=== PATIENT | male | born 1950 | race Caucasian/White ===

== ENCOUNTER 2023-04-25 18:07 | Inpatient (IN) | payer MEDICARE, OTHER ==
[~2023-04-25] VITALS: Ht 172.7 cm; Wt 92.5 kg
[2023-04-25] MEDS ORDERED: MAGN400O6 PO (18:55)
[2023-04-25] MEDS ORDERED: TRAM100T23 PO (18:55)
[2023-04-25] MEDS ORDERED: VITAMIN D2 PO (18:55)
[2023-04-25] MEDS ORDERED: ACET-2605 PO (18:55)
[2023-04-25] MEDS ORDERED: DOCU-286 PO (18:55)
[2023-04-25] MEDS ORDERED: LOPE2CAP40 PO (18:55)
[2023-04-25] MEDS ORDERED: LISI1TAB29 PO (18:55)
[2023-04-25] MEDS ORDERED: NYST15PO4 TP (18:55)
[2023-04-25] MEDS ORDERED: METO-356 PO (18:55)
[2023-04-25] MEDS ORDERED: FURO20TA4 PO (18:55)
[2023-04-25] MEDS ORDERED: MAG355OR32 PO (18:55)
[2023-04-25] MEDS ORDERED: ATOR10TA PO (18:55)
[2023-04-25 19:06] LABS: CALCIUM 8.6 mg/dL (8.5-10.1); CARBON DIOXIDE 28 mmol/L (21-32); CHLORIDE 97 mmol/L (98-107); CREATININE 1.9 mg/dL (0.6-1.3); GLUCOSE 115 mg/dL (74-106); POTASSIUM 4.6 mmol/L (3.5-5.1); SODIUM SERUM 131 mmol/L (136-145); UREA NITROGEN, BLOOD 21 mg/dL (7-18)
[2023-04-25 19:11] LABS: ETHANOL < 3 MG/DL (0-10)
[2023-04-25 19:14] LABS: ALANINE AMINOTRANSFERASE 22 U/L (16-63); ALBUMIN 3.7 g/dL (3.4-5.0); ALKALINE PHOSPHATASE 94 U/L (50-136); ASPARTATE AMINOTRANSFERASE 13 U/L (15-37); BILIRUBIN,DIRECT 0.1 mg/dL (0.0-0.2); BILIRUBIN,TOTAL 0.3 mg/dL (0.2-1.0); TOTAL PROTEIN, SERUM 6.6 g/dL (6.4-8.2)
[2023-04-25 19:15] LABS: ACETAMINOPHEN < 10.0 ug/mL (10-30); AMMONIA < 10 umol/L (11-32)
[2023-04-25 19:16] LABS: BASOPHILS % (AUTO) 0.5 % (0.0-2.0); EOSINOPHILS # (AUTO) 0.1 K/uL (0.0-0.7); EOSINOPHILS % (AUTO) 1.3 % (0.0-7.0); HEMATOCRIT 30.4 % (36.7-47.1); HEMOGLOBIN 10.3 g/dL (12.5-16.3); LYMPHOCYTES # (AUTO) 1.8 K/uL (0.8-4.8); LYMPHOCYTES % (AUTO) 21.5 % (20.5-51.5); MEAN CORPUSCULAR HGB CONC 34 g/dL (32.5-36.3); MEAN CORPUSCULAR VOLUME 85.9 fL (73.0-96.2); MONOCYTES # (AUTO) 0.7 K/uL (0.1-1.30); NEUTROPHILS # (AUTO) 5.6 K/uL (1.8-8.9); NEUTROPHILS % (AUTO) 67.7 % (38.5-71.5); PLATELET COUNT (AUTO) 205 K/uL (152-348); RED BLOOD CELL COUNT(AUTO) 3.54 MIL/uL (4.06-5.63); RED CELL DISTRIBUTION WIDTH 13.4 % (12.1-16.2); WHITE BLOOD COUNT (AUTO) 8.2 K/uL (3.6-10.2)
[2023-04-25 19:18] LABS: THYROID STIMULATING HORMONE 2.539 mIU/mL (0.358-3.740)
[2023-04-25 19:20] LABS: DIFFERENTIAL COMMENT 1
[2023-04-25 20:03] LABS: *BILIRUBIN,URIN NEGATIVE (NEGATIVE); *BLOOD, URINE NEGATIVE (NEGATIVE); *CLARITY,URINE CLEAR (CLEAR); *COLOR,URINE YELLOW (YELLOW); *KETONES,URINE NEGATIVE (NEGATIVE); *PROTEIN,URINE TRACE (NEGATIVE); *UROBILINOGEN,URINE 0.2 E.U./dl (NORMAL); LEUKOCYTE ESTERASE ,URINE NEGATIVE (NEGATIVE); NITRITE, URINE NEGATIVE (NEGATIVE); UGLUCOSE NEGATIVE (NEGATIVE)
[2023-04-25 20:14] LABS: *AMPHETAMINE, URINE NEGATIVE (NEGATIVE); *BARBITURATE, URINE NEGATIVE (NEGATIVE); *BENZODIAZEPINE, URINE NEGATIVE (NEGATIVE); *CANNABINOID, URINE NEGATIVE (NEGATIVE); *COCCAINE, URINE NEGATIVE (NEGATIVE); *OPIATE, URINE NEGATIVE (NEGATIVE); *PHENCYCLIDINE SCREEN,URINE NEGATIVE (NEGATIVE); FENTANYL, URINE NEGATIVE (NEGATIVE)
[2023-04-25 20:29] LABS: BACTERIA,URINE FEW /HPF (NONE SEEN); RBC,URINE 0-3 /HPF (0-3); SQUAMOUS EPITHELIAL CELL,UR FEW /HPF (NONE SEEN); WBC,URINE NONE SEEN /HPF (0-3)
[2023-04-26] MEDS ORDERED: MAGNESIUM HYDROXIDE 30 ML LIQUID UDC PO PRN (03:00)
[2023-04-26] MEDS ORDERED: MAG HYDROX/AL HYDROX/SIMETH 30 ML LIQUID UDC PO PRN (03:00)
[2023-04-26] MEDS: LORAZEPAM 0.5 MG TABLET PO PRN ×2 (04:00→20:40)
[2023-04-26] MEDS: ACETAMINOPHEN 325 MG TABLET PO PRN (04:00)
[2023-04-26 04:22] VITALS: BP 151/72; TEMP 98; O2SAT 99
[2023-04-26 07:47] VITALS: BP 156/62; TEMP 98; O2SAT 100
[2023-04-26] MEDS: DIVALPROEX SPRINKLE 125 MG CAP.SPRINK PO SCH ×3 (11:22→17:25)
[2023-04-26 15:04] LABS: *BILIRUBIN,URIN NEGATIVE (NEGATIVE); *BLOOD, URINE NEGATIVE (NEGATIVE); *CLARITY,URINE CLEAR (CLEAR); *COLOR,URINE YELLOW (YELLOW); *KETONES,URINE NEGATIVE (NEGATIVE); *PROTEIN,URINE NEGATIVE (NEGATIVE); *UROBILINOGEN,URINE 0.2 E.U./dl (NORMAL); LEUKOCYTE ESTERASE ,URINE NEGATIVE (NEGATIVE); NITRITE, URINE NEGATIVE (NEGATIVE); PH,URINE 7.5 (5.0-8.0); UGLUCOSE NEGATIVE (NEGATIVE)
[2023-04-26 15:20] VITALS: BP 138/60; TEMP 98.2; O2SAT 100
[2023-04-26 15:29] LABS: *CREATININE,URINE 34.4 mg/dL (30-125); *URINE TOTAL PROTEIN RANDOM 8.2 mg/dL (<150/24HR)
[2023-04-26] MEDS ORDERED: LOPERAMIDE HCL 2 MG CAPSULE PO PRN (18:30)
[2023-04-26] MEDS ORDERED: MAG HYDROX/AL HYDROX/SIMETH 30 ML LIQUID UDC PO SCH (18:30)
[2023-04-26] MEDS ORDERED: VITAMIN D2 1.25 MG PO SCH (18:30)
[2023-04-26] MEDS ORDERED: TRAMADOL HCL 50 MG TABLET PO PRN (19:15)
[2023-04-26 20:00] VITALS: BP 137/66; TEMP 98.2; O2SAT 96
[2023-04-26] MEDS: OLANZAPINE ZYDIS 5 MG TAB.RAPDIS PO SCH (20:40)
[2023-04-26] MEDS: TEMAZEPAM 7.5 MG CAPSULE PO PRN (23:09)
[2023-04-27 06:57] LABS: BASOPHILS % (AUTO) 0.6 % (0.0-2.0); DIFFERENTIAL COMMENT 1; EOSINOPHILS # (AUTO) 0.3 K/uL (0.0-0.7); EOSINOPHILS % (AUTO) 6.2 % (0.0-7.0); HEMATOCRIT 32.6 % (36.7-47.1); HEMOGLOBIN 11.1 g/dL (12.5-16.3); LYMPHOCYTES # (AUTO) 1.5 K/uL (0.8-4.8); MEAN CORPUSCULAR HEMOGLOBIN 29.6 uug (23.8-33.4); MEAN CORPUSCULAR HGB CONC 34 g/dL (32.5-36.3); MEAN CORPUSCULAR VOLUME 86.5 fL (73.0-96.2); MONOCYTES # (AUTO) 0.6 K/uL (0.1-1.30); MONOCYTES % (AUTO) 10.1 % (0.0-11.0); NEUTROPHILS # (AUTO) 3.1 K/uL (1.8-8.9); NEUTROPHILS % (AUTO) 56.1 % (38.5-71.5); PLATELET COUNT (AUTO) 201 K/uL (152-348); RED BLOOD CELL COUNT(AUTO) 3.77 MIL/uL (4.06-5.63); RED CELL DISTRIBUTION WIDTH 13.6 % (12.1-16.2); WHITE BLOOD COUNT (AUTO) 5.6 K/uL (3.6-10.2)
[2023-04-27 07:18] LABS: CREATINE KINASE, TOTAL 342 U/L (39-308)
[2023-04-27 07:26] LABS: THYROID STIMULATING HORMONE 2.845 mIU/mL (0.358-3.740)
[2023-04-27 07:48] LABS: ALANINE AMINOTRANSFERASE 33 U/L (16-63); ALBUMIN 3.5 g/dL (3.4-5.0); ALKALINE PHOSPHATASE 88 U/L (50-136); ASPARTATE AMINOTRANSFERASE 25 U/L (15-37); BILIRUBIN,TOTAL 0.4 mg/dL (0.2-1.0); CALCIUM 8.4 mg/dL (8.5-10.1); CARBON DIOXIDE 27 mmol/L (21-32); CHLORIDE 101 mmol/L (98-107); CREATININE 1.5 mg/dL (0.6-1.3); FERRITIN 143 ng/mL (26-388); GLUCOSE 112 mg/dL (74-106); PHOSPHOROUS 3.7 mg/dL (2.5-4.9); POTASSIUM 4.4 mmol/L (3.5-5.1); SODIUM SERUM 134 mmol/L (136-145); TOTAL PROTEIN, SERUM 6.5 g/dL (6.4-8.2); UREA NITROGEN, BLOOD 20 mg/dL (7-18); URIC ACID 5.5 mg/dL (3.5-7.2)
[2023-04-27 08:01] LABS: IRON, SERUM 71 ug/dL (50-175)
[2023-04-27 08:42] VITALS: BP 131/63; TEMP 97.8; O2SAT 100
[2023-04-27] MEDS: DIVALPROEX SPRINKLE 125 MG CAP.SPRINK PO SCH ×3 (08:54→17:25)
[2023-04-27] MEDS ORDERED: NYSTATIN POWDER 15 GM BOTTLE TP SCH (09:00)
[2023-04-27] MEDS ORDERED: MAGNESIUM HYDROXIDE 30 ML LIQUID UDC PO SCH (09:00)
[2023-04-27] MEDS ORDERED: METOPROLOL SUCCINATE XL 25 MG TAB.SR.24H PO SCH (09:00)
[2023-04-27] MEDS ORDERED: ARIP15TA43 PO (13:20)
[2023-04-27] MEDS ORDERED: LISI2.5T14 PO (13:32)
[2023-04-27] MEDS ORDERED: FURO20TA4 PO (13:32)
[2023-04-27] MEDS ORDERED: GABA300C PO (13:32)
[2023-04-27] MEDS ORDERED: POTA10CA43 PO (13:32)
[2023-04-27] MEDS ORDERED: ATOR20TA PO (13:32)
[2023-04-27] MEDS ORDERED: ICOS1CAP PO (13:32)
[2023-04-27] MEDS ORDERED: METF-495 PO (13:32)
[2023-04-27] MEDS ORDERED: ASPI81TA31 PO (13:32)
[2023-04-27] MEDS ORDERED: BENZ1TAB7 PO (13:32)
[2023-04-27] MEDS ORDERED: CYAN-51 PO (13:32)
[2023-04-27] MEDS ORDERED: ESCI5TAB PO (13:32)
[2023-04-27] MEDS ORDERED: MELA3TAB41 PO (13:32)
[2023-04-27] MEDS ORDERED: LORA0.5T48 PO (13:34)
[2023-04-27] MEDS ORDERED: CLOT15CR5 TP (13:34)
[2023-04-27 16:20] VITALS: BP 94/49; TEMP 98; O2SAT 100
[2023-04-27] MEDS ORDERED: DOCUSATE SODIUM 100 MG CAPSULE PO SCH (18:00)
[2023-04-27] MEDS ORDERED: ATORVASTATIN 10 MG TABLET PO SCH (18:00)
[2023-04-27 19:52] VITALS: BP 134/69; TEMP 98.3; O2SAT 96
[2023-04-27] MEDS: OLANZAPINE ZYDIS 5 MG TAB.RAPDIS PO SCH (20:57)
[2023-04-27] MEDS: TEMAZEPAM 7.5 MG CAPSULE PO PRN (22:34)
[2023-04-28 07:50] VITALS: BP 151/77; TEMP 98.4; O2SAT 99
[2023-04-28] MEDS: DIVALPROEX SPRINKLE 125 MG CAP.SPRINK PO SCH ×3 (08:55→16:00)
[2023-04-28 16:17] VITALS: BP 128/74; TEMP 98.1; O2SAT 100
[2023-04-28 19:43] VITALS: BP 140/62; TEMP 98.2; O2SAT 97
[2023-04-28] MEDS: OLANZAPINE ZYDIS 5 MG TAB.RAPDIS PO SCH (20:34)
[2023-04-28] MEDS: ACETAMINOPHEN 325 MG TABLET PO PRN (20:34)
[2023-04-28] MEDS: TEMAZEPAM 7.5 MG CAPSULE PO PRN (22:38)
[2023-04-29 07:06] LABS: PTH, INTACT 38 pg/mL (15-65)
[2023-04-29 07:52] VITALS: BP 137/51; TEMP 98.2; O2SAT 100
[2023-04-29 08:16] LABS: BASOPHILS % (AUTO) 0.4 % (0.0-2.0); EOSINOPHILS # (AUTO) 0.3 K/uL (0.0-0.7); EOSINOPHILS % (AUTO) 5.6 % (0.0-7.0); HEMATOCRIT 34.8 % (36.7-47.1); HEMOGLOBIN 11.8 g/dL (12.5-16.3); LYMPHOCYTES # (AUTO) 1.5 K/uL (0.8-4.8); LYMPHOCYTES % (AUTO) 30.3 % (20.5-51.5); MEAN CORPUSCULAR HEMOGLOBIN 29.2 uug (23.8-33.4); MEAN CORPUSCULAR HGB CONC 34 g/dL (32.5-36.3); MEAN CORPUSCULAR VOLUME 86.3 fL (73.0-96.2); MONOCYTES # (AUTO) 0.6 K/uL (0.1-1.30); MONOCYTES % (AUTO) 11.3 % (0.0-11.0); NEUTROPHILS # (AUTO) 2.6 K/uL (1.8-8.9); NEUTROPHILS % (AUTO) 52.4 % (38.5-71.5); PLATELET COUNT (AUTO) 213 K/uL (152-348); RED BLOOD CELL COUNT(AUTO) 4.03 MIL/uL (4.06-5.63); RED CELL DISTRIBUTION WIDTH 13.5 % (12.1-16.2); WHITE BLOOD COUNT (AUTO) 4.9 K/uL (3.6-10.2)
[2023-04-29 08:20] LABS: DIFFERENTIAL COMMENT 1
[2023-04-29] MEDS: DIVALPROEX SPRINKLE 125 MG CAP.SPRINK PO SCH ×3 (08:25→16:40)
[2023-04-29 08:31] LABS: ALANINE AMINOTRANSFERASE 33 U/L (16-63); ALBUMIN 3.6 g/dL (3.4-5.0); ALKALINE PHOSPHATASE 86 U/L (50-136); ASPARTATE AMINOTRANSFERASE 18 U/L (15-37); BILIRUBIN,TOTAL 0.4 mg/dL (0.2-1.0); CALCIUM 8.6 mg/dL (8.5-10.1); CARBON DIOXIDE 27 mmol/L (21-32); CHLORIDE 103 mmol/L (98-107); CREATININE 1.5 mg/dL (0.6-1.3); GLUCOSE 108 mg/dL (74-106); MAGNESIUM 2.3 mg/dL (1.8-2.4); PHOSPHOROUS 3.5 mg/dL (2.5-4.9); POTASSIUM 5.1 mmol/L (3.5-5.1); SODIUM SERUM 137 mmol/L (136-145); UREA NITROGEN, BLOOD 26 mg/dL (7-18)
[2023-04-29 09:06] LABS: A/G RATIO 1.3 (0.7-1.7); ALBUMIN 3.3 g/dL (2.9-4.4); ALPHA-1-GLOBULIN 0.2 g/dL (0.0-0.4); ALPHA-2-GLOBULIN 0.8 g/dL (0.4-1.0); BETA GLOBULIN 0.8 g/dL (0.7-1.3); GAMMA GLOBULIN 0.7 g/dL (0.4-1.8); GLOBULIN, TOTAL 2.6 g/dL (2.2-3.9); M-SPIKE Not Observed g/dL (Not Observed)
[2023-04-29 15:48] VITALS: BP 148/82; TEMP 98; O2SAT 99
[2023-04-29 20:01] VITALS: BP 140/73; TEMP 98; O2SAT 99
[2023-04-29] MEDS: OLANZAPINE ZYDIS 5 MG TAB.RAPDIS PO SCH (21:11)
[2023-04-29] MEDS: TEMAZEPAM 7.5 MG CAPSULE PO PRN (22:47)
[2023-04-30] MEDS: LORAZEPAM 0.5 MG TABLET PO PRN (04:04)
[2023-04-30 07:45] VITALS: BP 154/85; TEMP 98.2; O2SAT 100
[2023-04-30] MEDS: DIVALPROEX SPRINKLE 125 MG CAP.SPRINK PO SCH ×3 (08:53→17:15)
[2023-04-30 15:18] VITALS: BP 141/72; TEMP 98.2; O2SAT 98
[2023-04-30 20:00] VITALS: BP 155/73; TEMP 97.8; O2SAT 98
[2023-04-30] MEDS: OLANZAPINE ZYDIS 5 MG TAB.RAPDIS PO SCH (20:01)
[2023-04-30] MEDS: TEMAZEPAM 7.5 MG CAPSULE PO PRN (22:47)
[2023-05-01 08:00] VITALS: BP 142/64; TEMP 98.6; O2SAT 100
[2023-05-01] MEDS: DIVALPROEX SPRINKLE 125 MG CAP.SPRINK PO SCH ×3 (09:03→16:56)
[2023-05-01 16:13] VITALS: BP 128/64; TEMP 98.8; O2SAT 100
[2023-05-01 20:11] VITALS: BP 139/41; TEMP 98; O2SAT 99
[2023-05-01] MEDS ORDERED: OLANZAPINE 5 MG TABLET PO SCH (21:00)
[2023-05-02 08:04] VITALS: BP 119/48; TEMP 97.7; O2SAT 100
[2023-05-02] MEDS: DIVALPROEX SPRINKLE 125 MG CAP.SPRINK PO SCH ×3 (08:36→16:32)
[2023-05-02 15:34] VITALS: BP 111/66; TEMP 99; O2SAT 100
[2023-05-02 20:11] VITALS: BP 124/62; TEMP 98.2; O2SAT 98
[2023-05-02] MEDS: OLANZAPINE 5 MG TABLET PO SCH (20:53)
[2023-05-02] MEDS: TEMAZEPAM 7.5 MG CAPSULE PO PRN (23:06)
[2023-05-03 08:23] VITALS: BP 145/65; TEMP 98; O2SAT 100
[2023-05-03] MEDS: DIVALPROEX SPRINKLE 125 MG CAP.SPRINK PO SCH ×3 (08:33→17:04)
[2023-05-03 16:12] VITALS: BP 146/78; TEMP 98.1; O2SAT 99
[2023-05-03] MEDS: OLANZAPINE 5 MG TABLET PO SCH (20:20)
[2023-05-03 20:47] VITALS: BP 144/60; TEMP 98.2; O2SAT 99
[2023-05-04] MEDS: TEMAZEPAM 7.5 MG CAPSULE PO PRN ×2 (02:18→22:56)
[2023-05-04 07:56] LABS: BASOPHILS % (AUTO) 0.5 % (0.0-2.0); EOSINOPHILS # (AUTO) 0.3 K/uL (0.0-0.7); EOSINOPHILS % (AUTO) 4.1 % (0.0-7.0); HEMATOCRIT 36.7 % (36.7-47.1); HEMOGLOBIN 12.1 g/dL (12.5-16.3); LYMPHOCYTES # (AUTO) 1.9 K/uL (0.8-4.8); LYMPHOCYTES % (AUTO) 25.8 % (20.5-51.5); MEAN CORPUSCULAR HEMOGLOBIN 28.8 uug (23.8-33.4); MEAN CORPUSCULAR HGB CONC 33 g/dL (32.5-36.3); MEAN CORPUSCULAR VOLUME 87.5 fL (73.0-96.2); MONOCYTES # (AUTO) 0.8 K/uL (0.1-1.30); MONOCYTES % (AUTO) 10.8 % (0.0-11.0); NEUTROPHILS # (AUTO) 4.3 K/uL (1.8-8.9); NEUTROPHILS % (AUTO) 58.8 % (38.5-71.5); PLATELET COUNT (AUTO) 236 K/uL (152-348); RED CELL DISTRIBUTION WIDTH 13.8 % (12.1-16.2); WHITE BLOOD COUNT (AUTO) 7.2 K/uL (3.6-10.2)
[2023-05-04 08:12] LABS: DIFFERENTIAL COMMENT 1
[2023-05-04 08:14] VITALS: BP 147/80; TEMP 98.1; O2SAT 99
[2023-05-04 08:29] LABS: ALANINE AMINOTRANSFERASE 29 U/L (16-63); ALBUMIN 3.9 g/dL (3.4-5.0); ALKALINE PHOSPHATASE 85 U/L (50-136); ASPARTATE AMINOTRANSFERASE 16 U/L (15-37); BILIRUBIN,TOTAL 0.4 mg/dL (0.2-1.0); CARBON DIOXIDE 26 mmol/L (21-32); CHLORIDE 103 mmol/L (98-107); CREATININE 1.5 mg/dL (0.6-1.3); GLUCOSE 125 mg/dL (74-106); MAGNESIUM 2.4 mg/dL (1.8-2.4); POTASSIUM 4.7 mmol/L (3.5-5.1); SODIUM SERUM 137 mmol/L (136-145); TOTAL PROTEIN, SERUM 7.4 g/dL (6.4-8.2); UREA NITROGEN, BLOOD 30 mg/dL (7-18)
[2023-05-04] MEDS: DIVALPROEX SPRINKLE 125 MG CAP.SPRINK PO SCH ×3 (08:47→17:21)
[2023-05-04 08:52] LABS: VALPROIC ACID 60 ug/mL (50-100)
[2023-05-04 16:18] VITALS: BP 160/82; TEMP 98; O2SAT 98
[2023-05-04 19:52] VITALS: BP 134/73; TEMP 98.1; O2SAT 96
[2023-05-04] MEDS: OLANZAPINE 5 MG TABLET PO SCH (20:07)
[2023-05-05] MEDS: LORAZEPAM 0.5 MG TABLET PO PRN (01:05)
[2023-05-05 07:42] VITALS: BP 150/77; TEMP 98; O2SAT 98
[2023-05-05] MEDS: DIVALPROEX SPRINKLE 125 MG CAP.SPRINK PO SCH ×2 (08:20→12:15)
[2023-05-05 16:15] VITALS: BP 152/59; TEMP 98.1; O2SAT 98
[2023-05-06] MEDS ORDERED: [UNRECOGNIZED DRUG - CODE] PO (11:20)
== END 2023-05-05 16:30 | disposition left against medical advice (07) | DRG 885 ==
LOC: ER 18:07 → GPS 04-26 02:30
PROVIDERS: ADMIT Psychiatry & Neurology Psychosomatic Medicine; ATTEND Student in an Organized Health Care Education/Training Program
DX: F31.2 Bipolar disorder, current episode manic severe with psychotic features (principal); N17.0 Acute kidney failure with tubular necrosis; N18.30 Chronic kidney disease, stage 3 unspecified; E87.1 Hypo-osmolality and hyponatremia; M62.82 Rhabdomyolysis; F84.0 Autistic disorder; H91.90 Unspecified hearing loss, unspecified ear; E66.9 Obesity, unspecified; K59.00 Constipation, unspecified; I12.9 Hypertensive chronic kidney disease with stage 1 through stage 4 chronic kidney disease, or unspecified chronic kidney disease; E11.22 Type 2 diabetes mellitus with diabetic chronic kidney disease; Z68.30 Body mass index [BMI] 30.0-30.9, adult; D64.9 Anemia, unspecified; E78.00 Pure hypercholesterolemia, unspecified; Z79.899 Other long term (current) drug therapy; F25.9 Schizoaffective disorder, unspecified
CPT/HCPCS: 36415; 70450; 71045; 76770; 80164; 83550; 83735; 83970; 84100; 84155; 84165; 84300; 84443; 84484; 84550; 85025; 85651; 85730; 86140; 93005; A4663; G0480

== ENCOUNTER 2023-05-06 11:11 | Inpatient (IN) | payer MEDICARE, OTHER ==
[~2023-05-06] VITALS: Ht 172.7 cm; Wt 90.7 kg
[~2023-05-06 11:11] MED LIST: ARIP15TA43 PO; ASPI81TA31 PO; ATOR20TA PO; BENZ1TAB7 PO; CLOT15CR5 TP; CYAN-51 PO; ESCI5TAB PO; FURO20TA4 PO; GABA300C PO; ICOS1CAP PO; LISI2.5T14 PO; LORA0.5T48 PO; MELA3TAB41 PO; METF-495 PO; POTA10CA43 PO; TRAM100T23 PO
[2023-05-06] MEDS ORDERED: [UNRECOGNIZED DRUG - CODE] PO (11:20)
[2023-05-06 11:55] LABS: BASOPHILS # (AUTO) 0.2 K/UL (0.0-0.2); BASOPHILS % (AUTO) 3.7 % (0.0-2.0); EOSINOPHILS # (AUTO) 0.2 K/uL (0.0-0.7); HEMATOCRIT 31.1 % (36.7-47.1); HEMOGLOBIN 10.5 g/dL (12.5-16.3); LYMPHOCYTES # (AUTO) 1.6 K/uL (0.8-4.8); LYMPHOCYTES % (AUTO) 26.5 % (20.5-51.5); MEAN CORPUSCULAR HEMOGLOBIN 29.2 uug (23.8-33.4); MEAN CORPUSCULAR HGB CONC 34 g/dL (32.5-36.3); MONOCYTES # (AUTO) 0.6 K/uL (0.1-1.30); MONOCYTES % (AUTO) 10.5 % (0.0-11.0); NEUTROPHILS # (AUTO) 3.4 K/uL (1.8-8.9); NEUTROPHILS % (AUTO) 56.3 % (38.5-71.5); PLATELET COUNT (AUTO) 217 K/uL (152-348); RED BLOOD CELL COUNT(AUTO) 3.58 MIL/uL (4.06-5.63); RED CELL DISTRIBUTION WIDTH 13.8 % (12.1-16.2); WHITE BLOOD COUNT (AUTO) 6.1 K/uL (3.6-10.2)
[2023-05-06 11:56] LABS: *BILIRUBIN,URIN NEGATIVE (NEGATIVE); *BLOOD, URINE NEGATIVE (NEGATIVE); *CLARITY,URINE CLEAR (CLEAR); *COLOR,URINE YELLOW (YELLOW); *KETONES,URINE NEGATIVE (NEGATIVE); *PROTEIN,URINE NEGATIVE (NEGATIVE); *UROBILINOGEN,URINE 0.2 E.U./dl (NORMAL); LEUKOCYTE ESTERASE ,URINE NEGATIVE (NEGATIVE); NITRITE, URINE NEGATIVE (NEGATIVE); UGLUCOSE NEGATIVE (NEGATIVE)
[2023-05-06 11:56] LABS: DIFFERENTIAL COMMENT 1
[2023-05-06 12:36] LABS: *AMPHETAMINE, URINE NEGATIVE (NEGATIVE); *BARBITURATE, URINE NEGATIVE (NEGATIVE); *BENZODIAZEPINE, URINE NEGATIVE (NEGATIVE); *CANNABINOID, URINE NEGATIVE (NEGATIVE); *COCCAINE, URINE NEGATIVE (NEGATIVE); *OPIATE, URINE NEGATIVE (NEGATIVE); *PHENCYCLIDINE SCREEN,URINE NEGATIVE (NEGATIVE); FENTANYL, URINE NEGATIVE (NEGATIVE)
[2023-05-06 12:44] LABS: CALCIUM 8.9 mg/dL (8.5-10.1); CARBON DIOXIDE 25 mmol/L (21-32); CHLORIDE 108 mmol/L (98-107); CREATININE 1.9 mg/dL (0.6-1.3); GLUCOSE 121 mg/dL (74-106); POTASSIUM 4.1 mmol/L (3.5-5.1); SODIUM SERUM 143 mmol/L (136-145); UREA NITROGEN, BLOOD 51 mg/dL (7-18)
[2023-05-06 12:53] LABS: ETHANOL < 3 MG/DL (0-10)
[2023-05-06 12:57] LABS: ALANINE AMINOTRANSFERASE 20 U/L (16-63); ALBUMIN 3.4 g/dL (3.4-5.0); ALKALINE PHOSPHATASE 72 U/L (50-136); BILIRUBIN,DIRECT < 0.1 mg/dL (0.0-0.2); BILIRUBIN,TOTAL 0.2 mg/dL (0.2-1.0); TOTAL PROTEIN, SERUM 6.6 g/dL (6.4-8.2)
[2023-05-06 12:58] LABS: ACETAMINOPHEN < 2.0 ug/mL (10-30)
[2023-05-06 13:09] LABS: ASPARTATE AMINOTRANSFERASE 11 U/L (15-37)
[2023-05-06] MEDS ORDERED: ACETAMINOPHEN 325 MG TABLET PO PRN (14:30)
[2023-05-06] MEDS ORDERED: MAG HYDROX/AL HYDROX/SIMETH 30 ML LIQUID UDC PO PRN (14:30)
[2023-05-06] MEDS ORDERED: LORAZEPAM 0.5 MG TABLET PO PRN (14:30)
[2023-05-06] MEDS ORDERED: BLOOD SUGAR DIAGNOSTIC 1 EACH STRIP VI ONE (14:30)
[2023-05-06] MEDS ORDERED: MAGNESIUM HYDROXIDE 30 ML LIQUID UDC PO PRN (14:30)
[2023-05-06 15:14] VITALS: BP 169/84; TEMP 98.2; O2SAT 96
[2023-05-06] MEDS: DIVALPROEX 500 MG TABLET.DR PO SCH (16:48)
[2023-05-06 20:00] VITALS: BP 161/89; TEMP 98.4; O2SAT 95
[2023-05-06] MEDS ORDERED: TRAMADOL HCL 50 MG TABLET PO PRN (20:15)
[2023-05-06] MEDS: MELATONIN 3 MG TABLET PO SCH (20:51)
[2023-05-06] MEDS: OLANZAPINE 2.5 MG TABLET PO SCH (20:51)
[2023-05-06] MEDS: ATORVASTATIN 20 MG TABLET PO SCH (20:53)
[2023-05-07 07:23] LABS: BASOPHILS % (AUTO) 0.5 % (0.0-2.0); EOSINOPHILS # (AUTO) 0.2 K/uL (0.0-0.7); EOSINOPHILS % (AUTO) 3.3 % (0.0-7.0); HEMATOCRIT 33.7 % (36.7-47.1); HEMOGLOBIN 11.2 g/dL (12.5-16.3); LYMPHOCYTES # (AUTO) 1.6 K/uL (0.8-4.8); LYMPHOCYTES % (AUTO) 23.8 % (20.5-51.5); MEAN CORPUSCULAR HEMOGLOBIN 29.1 uug (23.8-33.4); MEAN CORPUSCULAR HGB CONC 33 g/dL (32.5-36.3); MEAN CORPUSCULAR VOLUME 87.5 fL (73.0-96.2); MONOCYTES # (AUTO) 0.8 K/uL (0.1-1.30); MONOCYTES % (AUTO) 12.1 % (0.0-11.0); NEUTROPHILS # (AUTO) 4.1 K/uL (1.8-8.9); NEUTROPHILS % (AUTO) 60.3 % (38.5-71.5); PLATELET COUNT (AUTO) 219 K/uL (152-348); RED BLOOD CELL COUNT(AUTO) 3.85 MIL/uL (4.06-5.63); RED CELL DISTRIBUTION WIDTH 13.6 % (12.1-16.2); WHITE BLOOD COUNT (AUTO) 6.8 K/uL (3.6-10.2)
[2023-05-07 07:29] LABS: DIFFERENTIAL COMMENT 1
[2023-05-07 07:38] VITALS: BP 142/68; TEMP 98; O2SAT 98
[2023-05-07 07:42] LABS: ALANINE AMINOTRANSFERASE 27 U/L (16-63); ALBUMIN 3.8 g/dL (3.4-5.0); ALKALINE PHOSPHATASE 77 U/L (50-136); ASPARTATE AMINOTRANSFERASE 15 U/L (15-37); BILIRUBIN,TOTAL 0.5 mg/dL (0.2-1.0); CALCIUM 8.7 mg/dL (8.5-10.1); CARBON DIOXIDE 28 mmol/L (21-32); CHLORIDE 107 mmol/L (98-107); CREATININE 1.7 mg/dL (0.6-1.3); GLUCOSE 126 mg/dL (74-106); MAGNESIUM 2.1 mg/dL (1.8-2.4); PHOSPHOROUS 3.6 mg/dL (2.5-4.9); POTASSIUM 4.6 mmol/L (3.5-5.1); SODIUM SERUM 142 mmol/L (136-145); UREA NITROGEN, BLOOD 39 mg/dL (7-18)
[2023-05-07] MEDS: LISINOPRIL 5 MG TABLET PO SCH (08:58)
[2023-05-07] MEDS: ASPIRIN 81 MG TAB.CHEW PO SCH (08:58)
[2023-05-07] MEDS: POTASSIUM CHLORIDE 10 MEQ TAB.PRT.SR PO SCH (08:58)
[2023-05-07] MEDS: DIVALPROEX 500 MG TABLET.DR PO SCH ×3 (08:59→17:09)
[2023-05-07] MEDS: FUROSEMIDE 20 MG TABLET PO SCH (08:59)
[2023-05-07 13:09] LABS: *CREATININE,URINE 40.9 mg/dL (30-125); *URINE TOTAL PROTEIN RANDOM 12.8 mg/dL (<150/24HR)
[2023-05-07 15:03] VITALS: BP 147/81; TEMP 97; O2SAT 98
[2023-05-07] MEDS: METFORMIN XR 500 MG TAB.SR.24H PO SCH (17:09)
[2023-05-07 19:44] VITALS: BP 122/62; TEMP 98.1; O2SAT 98
[2023-05-07] MEDS: ATORVASTATIN 20 MG TABLET PO SCH (20:46)
[2023-05-07] MEDS: OLANZAPINE 2.5 MG TABLET PO SCH (20:46)
[2023-05-07] MEDS: MELATONIN 3 MG TABLET PO SCH (20:47)
[2023-05-08 07:59] VITALS: BP 111/81; TEMP 98.2; O2SAT 99
[2023-05-08] MEDS: ASPIRIN 81 MG TAB.CHEW PO SCH (09:32)
[2023-05-08] MEDS: FUROSEMIDE 20 MG TABLET PO SCH (09:32)
[2023-05-08] MEDS: POTASSIUM CHLORIDE 10 MEQ TAB.PRT.SR PO SCH (09:32)
[2023-05-08] MEDS: DIVALPROEX 500 MG TABLET.DR PO SCH ×3 (09:32→17:12)
[2023-05-08] MEDS: LISINOPRIL 5 MG TABLET PO SCH (09:33)
[2023-05-08 15:05] VITALS: BP 122/53; TEMP 98.2; O2SAT 98
[2023-05-08] MEDS: METFORMIN XR 500 MG TAB.SR.24H PO SCH (17:21)
[2023-05-08 20:03] VITALS: BP 139/71; TEMP 98.3; O2SAT 97
[2023-05-08] MEDS: ATORVASTATIN 20 MG TABLET PO SCH (20:34)
[2023-05-08] MEDS: OLANZAPINE 2.5 MG TABLET PO SCH (20:34)
[2023-05-08] MEDS: MELATONIN 3 MG TABLET PO SCH (20:35)
[2023-05-09 08:00] VITALS: BP 162/82; TEMP 98.2; O2SAT 98
[2023-05-09] MEDS: POTASSIUM CHLORIDE 10 MEQ TAB.PRT.SR PO SCH (08:41)
[2023-05-09] MEDS: DIVALPROEX 500 MG TABLET.DR PO SCH ×3 (08:41→17:05)
[2023-05-09] MEDS: ASPIRIN 81 MG TAB.CHEW PO SCH (08:42)
[2023-05-09] MEDS: FUROSEMIDE 20 MG TABLET PO SCH (08:42)
[2023-05-09] MEDS: LISINOPRIL 5 MG TABLET PO SCH (08:42)
[2023-05-09 15:20] VITALS: BP 140/81; TEMP 98.2; O2SAT 98
[2023-05-09] MEDS: METFORMIN XR 500 MG TAB.SR.24H PO SCH (17:08)
[2023-05-09 19:51] VITALS: BP 126/75; TEMP 98; O2SAT 98
[2023-05-09] MEDS: ATORVASTATIN 20 MG TABLET PO SCH (20:30)
[2023-05-09] MEDS: OLANZAPINE 2.5 MG TABLET PO SCH (20:31)
[2023-05-09] MEDS: MELATONIN 3 MG TABLET PO SCH (20:31)
[2023-05-10 07:49] VITALS: BP 126/69; TEMP 98.1; O2SAT 97
[2023-05-10] MEDS: DIVALPROEX 500 MG TABLET.DR PO SCH ×3 (08:17→16:08)
[2023-05-10] MEDS: ASPIRIN 81 MG TAB.CHEW PO SCH (08:17)
[2023-05-10] MEDS: FUROSEMIDE 20 MG TABLET PO SCH (08:17)
[2023-05-10] MEDS: POTASSIUM CHLORIDE 10 MEQ TAB.PRT.SR PO SCH (08:18)
[2023-05-10] MEDS: LISINOPRIL 5 MG TABLET PO SCH (08:20)
[2023-05-10] MEDS: BENZTROPINE MESYLATE 1 MG TABLET PO SCH (16:08)
[2023-05-10 16:11] VITALS: BP 128/72; TEMP 98; O2SAT 97
[2023-05-10] MEDS: METFORMIN XR 500 MG TAB.SR.24H PO SCH (17:28)
[2023-05-10 20:00] VITALS: BP 100/51; TEMP 98; O2SAT 95
[2023-05-10] MEDS: OLANZAPINE 2.5 MG TABLET PO SCH (20:25)
[2023-05-10] MEDS: ATORVASTATIN 20 MG TABLET PO SCH (20:26)
[2023-05-10] MEDS: MELATONIN 3 MG TABLET PO SCH (20:26)
[2023-05-10] MEDS: TEMAZEPAM 7.5 MG CAPSULE PO PRN (21:37)
[2023-05-11 08:24] VITALS: BP 103/75; TEMP 98; O2SAT 97
[2023-05-11] MEDS: DIVALPROEX 500 MG TABLET.DR PO SCH ×3 (08:38→17:19)
[2023-05-11] MEDS: BENZTROPINE MESYLATE 1 MG TABLET PO SCH ×2 (08:38→17:19)
[2023-05-11] MEDS: LISINOPRIL 5 MG TABLET PO SCH (08:38)
[2023-05-11] MEDS: ASPIRIN 81 MG TAB.CHEW PO SCH (08:39)
[2023-05-11] MEDS: FUROSEMIDE 20 MG TABLET PO SCH (08:39)
[2023-05-11] MEDS: POTASSIUM CHLORIDE 20 MEQ POWDER PACKET PO SCH (08:40)
[2023-05-11 16:18] VITALS: BP 113/54; TEMP 98; O2SAT 97
[2023-05-11] MEDS: METFORMIN XR 500 MG TAB.SR.24H PO SCH (17:20)
[2023-05-11 19:53] VITALS: BP 116/62; TEMP 98.1; O2SAT 100
[2023-05-11] MEDS: MELATONIN 3 MG TABLET PO SCH (21:02)
[2023-05-11] MEDS: ATORVASTATIN 20 MG TABLET PO SCH (21:02)
[2023-05-11] MEDS: OLANZAPINE 2.5 MG TABLET PO SCH (21:02)
[2023-05-12 07:52] VITALS: BP 119/63; TEMP 98; O2SAT 98
[2023-05-12] MEDS: BENZTROPINE MESYLATE 1 MG TABLET PO SCH ×2 (08:47→17:36)
[2023-05-12] MEDS: ASPIRIN 81 MG TAB.CHEW PO SCH (08:47)
[2023-05-12] MEDS: FUROSEMIDE 20 MG TABLET PO SCH (08:48)
[2023-05-12] MEDS: LISINOPRIL 5 MG TABLET PO SCH (08:48)
[2023-05-12] MEDS: POTASSIUM CHLORIDE 20 MEQ POWDER PACKET PO SCH (08:49)
[2023-05-12] MEDS: DIVALPROEX 500 MG TABLET.DR PO SCH ×3 (08:49→17:36)
[2023-05-12] MEDS: METFORMIN XR 500 MG TAB.SR.24H PO SCH (17:53)
[2023-05-12] MEDS ORDERED: BENZTROPINE MESYLATE 0.5 MG TABLET PO SCH (18:00)
[2023-05-12 19:42] VITALS: BP 116/60; TEMP 98.1; O2SAT 98
[2023-05-12] MEDS: MELATONIN 3 MG TABLET PO SCH (20:54)
[2023-05-12] MEDS: ATORVASTATIN 20 MG TABLET PO SCH (20:54)
[2023-05-12] MEDS ORDERED: OLANZAPINE 5 MG TABLET PO SCH (21:00)
[2023-05-12] MEDS: TEMAZEPAM 7.5 MG CAPSULE PO PRN (23:48)
[2023-05-13 08:03] VITALS: BP 114/78; TEMP 98; O2SAT 99
[2023-05-13] MEDS: FUROSEMIDE 20 MG TABLET PO SCH (08:40)
[2023-05-13] MEDS: LISINOPRIL 5 MG TABLET PO SCH (08:40)
[2023-05-13] MEDS: POTASSIUM CHLORIDE 20 MEQ POWDER PACKET PO SCH (08:41)
[2023-05-13] MEDS: BENZTROPINE MESYLATE 1 MG TABLET PO SCH ×2 (08:41→17:02)
[2023-05-13] MEDS: DIVALPROEX 500 MG TABLET.DR PO SCH ×3 (08:41→17:02)
[2023-05-13] MEDS: ASPIRIN 81 MG TAB.CHEW PO SCH (08:41)
[2023-05-13 08:56] LABS: ALANINE AMINOTRANSFERASE 19 U/L (16-63); ALBUMIN 3.8 g/dL (3.4-5.0); ALKALINE PHOSPHATASE 74 U/L (50-136); ASPARTATE AMINOTRANSFERASE 14 U/L (15-37); BILIRUBIN,TOTAL 0.4 mg/dL (0.2-1.0); CALCIUM 9.4 mg/dL (8.5-10.1); CARBON DIOXIDE 24 mmol/L (21-32); CHLORIDE 104 mmol/L (98-107); CREATININE 2.9 mg/dL (0.6-1.3); GLUCOSE 111 mg/dL (74-106); MAGNESIUM 2.3 mg/dL (1.8-2.4); PHOSPHOROUS 4.6 mg/dL (2.5-4.9); POTASSIUM 5.5 mmol/L (3.5-5.1); SODIUM SERUM 140 mmol/L (136-145); TOTAL PROTEIN, SERUM 7.2 g/dL (6.4-8.2)
[2023-05-13 09:05] LABS: UREA NITROGEN, BLOOD 83 mg/dL (7-18)
[2023-05-13] MEDS ORDERED: SODIUM POLYSTYRENE SULFONATE 15 G/60 ML LIQUID UDC PO STA (09:27)
[2023-05-13] MEDS ORDERED: IV NS 1000 ML 1,000 ML IV PRN (09:45)
[2023-05-13 10:48] LABS: BASOPHILS % (AUTO) 0.3 % (0.0-2.0); EOSINOPHILS # (AUTO) 0.1 K/uL (0.0-0.7); EOSINOPHILS % (AUTO) 1.4 % (0.0-7.0); HEMATOCRIT 35.2 % (36.7-47.1); HEMOGLOBIN 11.7 g/dL (12.5-16.3); LYMPHOCYTES # (AUTO) 1.5 K/uL (0.8-4.8); LYMPHOCYTES % (AUTO) 18.3 % (20.5-51.5); MEAN CORPUSCULAR HEMOGLOBIN 29.1 uug (23.8-33.4); MEAN CORPUSCULAR HGB CONC 33 g/dL (32.5-36.3); MEAN CORPUSCULAR VOLUME 87.5 fL (73.0-96.2); MONOCYTES # (AUTO) 0.8 K/uL (0.1-1.30); NEUTROPHILS # (AUTO) 5.9 K/uL (1.8-8.9); PLATELET COUNT (AUTO) 234 K/uL (152-348); RED BLOOD CELL COUNT(AUTO) 4.03 MIL/uL (4.06-5.63); RED CELL DISTRIBUTION WIDTH 13.8 % (12.1-16.2); WHITE BLOOD COUNT (AUTO) 8.5 K/uL (3.6-10.2)
[2023-05-13 11:11] LABS: DIFFERENTIAL COMMENT 1
[2023-05-13 11:32] LABS: *BILIRUBIN,URIN NEGATIVE (NEGATIVE); *BLOOD, URINE NEGATIVE (NEGATIVE); *CLARITY,URINE CLEAR (CLEAR); *COLOR,URINE YELLOW (YELLOW); *KETONES,URINE NEGATIVE (NEGATIVE); *PROTEIN,URINE NEGATIVE (NEGATIVE); *UROBILINOGEN,URINE 0.2 E.U./dl (NORMAL); LEUKOCYTE ESTERASE ,URINE NEGATIVE (NEGATIVE); NITRITE, URINE NEGATIVE (NEGATIVE); PH,URINE 5.5 (5.0-8.0); UGLUCOSE NEGATIVE (NEGATIVE)
[2023-05-13 11:48] LABS: *URINE TOTAL PROTEIN RANDOM 20.6 mg/dL (<150/24HR)
[2023-05-13 14:31] LABS: CALCIUM 8.5 mg/dL (8.5-10.1); CARBON DIOXIDE 27 mmol/L (21-32); CHLORIDE 103 mmol/L (98-107); CREATININE 2.8 mg/dL (0.6-1.3); GLUCOSE 139 mg/dL (74-106); POTASSIUM 5.1 mmol/L (3.5-5.1); SODIUM SERUM 140 mmol/L (136-145)
[2023-05-13 14:48] LABS: UREA NITROGEN, BLOOD 80 mg/dL (7-18)
[2023-05-13 15:22] VITALS: BP 99/65; TEMP 98; O2SAT 99
[2023-05-13] MEDS ORDERED: METFORMIN XR 500 MG TAB.SR.24H PO SCH (18:00)
[2023-05-14] MEDS ORDERED: DIVA500T2 PO (06:04)
[2023-05-14] MEDS ORDERED: LORA0.5T48 PO (06:05)
[2023-05-14] MEDS ORDERED: OLAN5TAB3 PO (06:06)
[2023-05-14] MEDS ORDERED: TEMA7.5C PO (06:07)
[2023-05-14] MEDS ORDERED: LISINOPRIL 5 MG TABLET PO SCH (09:00)
[2023-05-14] MEDS ORDERED: POTASSIUM CHLORIDE 20 MEQ POWDER PACKET PO SCH (09:00)
== END 2023-05-13 19:59 | disposition short-term general hospital (02) | DRG 885 ==
LOC: ER 11:11 → GPS 14:11
PROVIDERS: ADMIT Psychiatry & Neurology Psychosomatic Medicine; ATTEND Nurse Practitioner Acute Care
DX: F31.89 Other bipolar disorder (principal); N18.32 Chronic kidney disease, stage 3b; N17.9 Acute kidney failure, unspecified; I13.10 Hypertensive heart and chronic kidney disease without heart failure, with stage 1 through stage 4 chronic kidney disease, or unspecified chronic kidney disease; E11.22 Type 2 diabetes mellitus with diabetic chronic kidney disease; Z79.84 Long term (current) use of oral hypoglycemic drugs; E78.5 Hyperlipidemia, unspecified; D63.8 Anemia in other chronic diseases classified elsewhere; F25.9 Schizoaffective disorder, unspecified; F84.0 Autistic disorder; G47.00 Insomnia, unspecified; K59.00 Constipation, unspecified; M19.90 Unspecified osteoarthritis, unspecified site; Z20.822 Contact with and (suspected) exposure to COVID-19; F29 Unspecified psychosis not due to a substance or known physiological condition; Z73.6 Limitation of activities due to disability; E66.9 Obesity, unspecified; Z68.30 Body mass index [BMI] 30.0-30.9, adult; H90.5 Unspecified sensorineural hearing loss
CPT/HCPCS: 36415; 76770; 83735; 84100; 84300; 85025; 93005; G0480; J7040

== ENCOUNTER 2023-05-13 20:22 | Inpatient (IN) | payer MEDICARE, OTHER ==
[~2023-05-13] VITALS: Ht 172.7 cm; Wt 90.7 kg
[~2023-05-13 20:22] MED LIST changes: -ARIP15TA43 PO; -ESCI5TAB PO; -GABA300C PO; -LORA0.5T48 PO
[2023-05-13] MEDS ORDERED: ACETAMINOPHEN 325 MG TABLET PO PRN (21:30)
[2023-05-13] MEDS ORDERED: TEMAZEPAM 15 MG CAPSULE PO PRN (21:30)
[2023-05-13] MEDS ORDERED: TRAMADOL HCL 50 MG TABLET PO PRN (21:45)
[2023-05-13] MEDS: IV NS 1000 ML 1,000 ML IV PRN (22:33)
[2023-05-14 00:20] VITALS: BP 116/53; TEMP 97.4; O2SAT 95
[2023-05-14 03:50] VITALS: BP_SYST 116; BP_SYST 98; BP_DIAS 53; BP_DIAS 60; TEMP 97.4; TEMP 98; O2SAT 95; O2SAT 97
[2023-05-14] MEDS ORDERED: DIVA500T2 PO (06:04)
[2023-05-14] MEDS ORDERED: LORA0.5T48 PO (06:05)
[2023-05-14] MEDS ORDERED: OLAN5TAB3 PO (06:06)
[2023-05-14] MEDS ORDERED: TEMA7.5C PO (06:07)
[2023-05-14] MEDS: PANTOPRAZOLE SODIUM 40 MG TABLET.DR PO SCH (06:15)
[2023-05-14 06:50] LABS: BASOPHILS % (AUTO) 0.5 % (0.0-2.0); EOSINOPHILS # (AUTO) 0.2 K/uL (0.0-0.7); HEMATOCRIT 31.4 % (36.7-47.1); HEMOGLOBIN 10.6 g/dL (12.5-16.3); LYMPHOCYTES # (AUTO) 1.9 K/uL (0.8-4.8); LYMPHOCYTES % (AUTO) 31.9 % (20.5-51.5); MEAN CORPUSCULAR HEMOGLOBIN 29.4 uug (23.8-33.4); MEAN CORPUSCULAR HGB CONC 34 g/dL (32.5-36.3); MEAN CORPUSCULAR VOLUME 87.4 fL (73.0-96.2); MONOCYTES # (AUTO) 0.8 K/uL (0.1-1.30); MONOCYTES % (AUTO) 13.6 % (0.0-11.0); PLATELET COUNT (AUTO) 187 K/uL (152-348); RED BLOOD CELL COUNT(AUTO) 3.59 MIL/uL (4.06-5.63); RED CELL DISTRIBUTION WIDTH 13.4 % (12.1-16.2); WHITE BLOOD COUNT (AUTO) 5.9 K/uL (3.6-10.2)
[2023-05-14 06:59] LABS: DIFFERENTIAL COMMENT 1
[2023-05-14 07:08] LABS: ALANINE AMINOTRANSFERASE 17 U/L (16-63); ALBUMIN 3.3 g/dL (3.4-5.0); ALKALINE PHOSPHATASE 67 U/L (50-136); ASPARTATE AMINOTRANSFERASE 13 U/L (15-37); BILIRUBIN,TOTAL 0.3 mg/dL (0.2-1.0); CALCIUM 8.7 mg/dL (8.5-10.1); CARBON DIOXIDE 26 mmol/L (21-32); CHLORIDE 109 mmol/L (98-107); CREATININE 2.1 mg/dL (0.6-1.3); GLUCOSE 130 mg/dL (74-106); MAGNESIUM 2.5 mg/dL (1.8-2.4); PHOSPHOROUS 3.8 mg/dL (2.5-4.9); POTASSIUM 4.5 mmol/L (3.5-5.1); SODIUM SERUM 144 mmol/L (136-145); TOTAL PROTEIN, SERUM 6.3 g/dL (6.4-8.2); UREA NITROGEN, BLOOD 71 mg/dL (7-18)
[2023-05-14 07:15] LABS: THYROID STIMULATING HORMONE 3.521 mIU/mL (0.358-3.740)
[2023-05-14] MEDS ORDERED: Icosapent Ethyl (Vascepa) 1 GM) PO SCH (09:00)
[2023-05-14] MEDS ORDERED: BENZTROPINE MESYLATE 1 MG TABLET PO SCH ×2 (09:00)
[2023-05-14] MEDS: ASPIRIN 81 MG TAB.CHEW PO SCH (10:19)
[2023-05-14] MEDS: CYANOCOBALAMIN 1,000 MCG TABLET PO SCH (10:19)
[2023-05-14 11:52] VITALS: BP 109/42; TEMP 97.9; O2SAT 99
[2023-05-14] MEDS: IV NS 1000 ML 1,000 ML IV PRN (12:02)
[2023-05-14] MEDS: DIVALPROEX 500 MG TABLET.DR PO SCH ×2 (14:14→18:32)
[2023-05-14 15:29] VITALS: BP 123/62; TEMP 97.7; O2SAT 99
[2023-05-14] MEDS: BENZTROPINE MESYLATE 1 MG TABLET PO SCH (18:32)
[2023-05-14 20:00] VITALS: BP 126/65; TEMP 98.1; O2SAT 97
[2023-05-14] MEDS ORDERED: TEMAZEPAM 7.5 MG CAPSULE PO PRN (21:00)
[2023-05-14] MEDS: OLANZAPINE 5 MG TABLET PO SCH (22:07)
[2023-05-14] MEDS: MELATONIN 3 MG TABLET PO SCH (22:07)
[2023-05-14] MEDS: ATORVASTATIN 20 MG TABLET PO SCH (22:07)
[2023-05-15 04:00] VITALS: BP 131/49; TEMP 98.5; O2SAT 97
[2023-05-15] MEDS: PANTOPRAZOLE SODIUM 40 MG TABLET.DR PO SCH (06:07)
[2023-05-15 06:50] LABS: BASOPHILS % (AUTO) 0.5 % (0.0-2.0); EOSINOPHILS # (AUTO) 0.3 K/uL (0.0-0.7); HEMATOCRIT 30.3 % (36.7-47.1); HEMOGLOBIN 10.4 g/dL (12.5-16.3); LYMPHOCYTES # (AUTO) 1.6 K/uL (0.8-4.8); LYMPHOCYTES % (AUTO) 24.8 % (20.5-51.5); MEAN CORPUSCULAR HEMOGLOBIN 29.7 uug (23.8-33.4); MEAN CORPUSCULAR HGB CONC 34 g/dL (32.5-36.3); MEAN CORPUSCULAR VOLUME 86.4 fL (73.0-96.2); MONOCYTES # (AUTO) 0.8 K/uL (0.1-1.30); MONOCYTES % (AUTO) 11.8 % (0.0-11.0); NEUTROPHILS # (AUTO) 3.8 K/uL (1.8-8.9); NEUTROPHILS % (AUTO) 58.9 % (38.5-71.5); PLATELET COUNT (AUTO) 171 K/uL (152-348); RED BLOOD CELL COUNT(AUTO) 3.51 MIL/uL (4.06-5.63); RED CELL DISTRIBUTION WIDTH 13.1 % (12.1-16.2); WHITE BLOOD COUNT (AUTO) 6.4 K/uL (3.6-10.2)
[2023-05-15 06:58] LABS: CALCIUM 7.9 mg/dL (8.5-10.1); CARBON DIOXIDE 26 mmol/L (21-32); CHLORIDE 107 mmol/L (98-107); CREATININE 1.6 mg/dL (0.6-1.3); GLUCOSE 107 mg/dL (74-106); PHOSPHOROUS 3.3 mg/dL (2.5-4.9); POTASSIUM 4.5 mmol/L (3.5-5.1); SODIUM SERUM 141 mmol/L (136-145); UREA NITROGEN, BLOOD 41 mg/dL (7-18)
[2023-05-15 07:07] LABS: DIFFERENTIAL COMMENT 1
[2023-05-15 07:45] VITALS: BP 115/52; TEMP 98.2; O2SAT 96
[2023-05-15] MEDS: ASPIRIN 81 MG TAB.CHEW PO SCH (08:35)
[2023-05-15] MEDS: DIVALPROEX 500 MG TABLET.DR PO SCH ×3 (08:35→17:36)
[2023-05-15] MEDS: CYANOCOBALAMIN 1,000 MCG TABLET PO SCH (08:35)
[2023-05-15] MEDS: BENZTROPINE MESYLATE 1 MG TABLET PO SCH ×2 (08:35→17:36)
[2023-05-15 11:00] VITALS: BP 116/68; TEMP 98; O2SAT 98
[2023-05-15 12:04] VITALS: BP 116/68; TEMP 98; O2SAT 98
[2023-05-15 16:08] VITALS: BP 105/66; TEMP 98.1; O2SAT 98
[2023-05-15 20:00] VITALS: BP 130/68; TEMP 98.4; O2SAT 99
[2023-05-15] MEDS: OLANZAPINE 5 MG TABLET PO SCH (21:49)
[2023-05-15] MEDS: ATORVASTATIN 20 MG TABLET PO SCH (21:50)
[2023-05-15] MEDS: MELATONIN 3 MG TABLET PO SCH (21:51)
[2023-05-15] MEDS: IV NS 1000 ML 1,000 ML IV PRN (22:23)
[2023-05-16 04:00] VITALS: BP 125/75; TEMP 98.4; O2SAT 98
[2023-05-16] MEDS: PANTOPRAZOLE SODIUM 40 MG TABLET.DR PO SCH (06:11)
[2023-05-16 07:17] LABS: CALCIUM 9.3 mg/dL (8.5-10.1); CARBON DIOXIDE 25 mmol/L (21-32); CHLORIDE 107 mmol/L (98-107); CREATININE 1.6 mg/dL (0.6-1.3); GLUCOSE 124 mg/dL (74-106); POTASSIUM 4.7 mmol/L (3.5-5.1); SODIUM SERUM 141 mmol/L (136-145); UREA NITROGEN, BLOOD 34 mg/dL (7-18)
[2023-05-16 08:00] VITALS: BP 131/75; TEMP 98.2; O2SAT 100
[2023-05-16] MEDS: CYANOCOBALAMIN 1,000 MCG TABLET PO SCH (08:51)
[2023-05-16] MEDS: ASPIRIN 81 MG TAB.CHEW PO SCH (08:51)
[2023-05-16] MEDS: BENZTROPINE MESYLATE 1 MG TABLET PO SCH (08:51)
[2023-05-16] MEDS: DIVALPROEX 500 MG TABLET.DR PO SCH ×2 (08:51→13:38)
[2023-05-16 11:12] VITALS: BP 132/76; TEMP 97.5; O2SAT 99
[2023-05-16 15:48] VITALS: BP 138/72; TEMP 97.8; O2SAT 99
== END 2023-05-16 17:15 | DRG 682 ==
LOC: TELE3 20:22 → MEDSURG3 20:51 → TELE3 21:45 → MEDSURG3 05-14 11:37
PROVIDERS: ADMIT Nurse Practitioner Acute Care; ATTEND Nurse Practitioner Acute Care
DX: N17.0 Acute kidney failure with tubular necrosis (principal); G93.41 Metabolic encephalopathy; E87.1 Hypo-osmolality and hyponatremia; F84.0 Autistic disorder; N18.32 Chronic kidney disease, stage 3b; H90.3 Sensorineural hearing loss, bilateral; D63.8 Anemia in other chronic diseases classified elsewhere; E11.22 Type 2 diabetes mellitus with diabetic chronic kidney disease; E66.01 Morbid (severe) obesity due to excess calories; E78.5 Hyperlipidemia, unspecified; F31.9 Bipolar disorder, unspecified; R41.9 Unspecified symptoms and signs involving cognitive functions and awareness; F25.0 Schizoaffective disorder, bipolar type; I12.9 Hypertensive chronic kidney disease with stage 1 through stage 4 chronic kidney disease, or unspecified chronic kidney disease; K59.00 Constipation, unspecified; M19.90 Unspecified osteoarthritis, unspecified site; Z79.4 Long term (current) use of insulin
CPT/HCPCS: 36415; 83735; 84100; 84443; 85025; A4663; G0378; J7040